=== PATIENT | male | born 1955 | race Caucasian/White ===

== ENCOUNTER 2021-10-01 10:20 | Outpatient (CLI) | payer BC ==
[2021-10-01 19:25] LABS: SARS-CoV-2 PCR by NAA Not Detected (NotDetected)
== END 2021-10-01 10:21 | disposition home or self-care (01) ==
LOC: CSHLAB 10:20
PROVIDERS: ATTEND Surgery
DX: Z20.822 Contact with and (suspected) exposure to COVID-19 (principal); C85.11 Unspecified B-cell lymphoma, lymph nodes of head, face, and neck
CPT/HCPCS: U0003; U0005

== ENCOUNTER 2021-10-04 05:28 | Day surgery (SDC) | payer BC ==
[2021-10-01 09:37] VITALS: BMI 29.7
[2021-10-04] MEDS ORDERED: Bupivacaine 0.25% HCL 30 ML VIAL ONE (06:32)
[2021-10-04] MEDS ORDERED: EPINEPHrine 1 MG/ML AMP ONE (06:33)
[2021-10-04] MEDS ORDERED: PROPOFOL 20 ML ONE (06:34)
[2021-10-04] MEDS ORDERED: Midazolam HCl 2 mg/2 ml Vial ONE (06:34)
[2021-10-04] MEDS ORDERED: Dexamethasone 4 mg/ml Vial ONE (06:34)
[2021-10-04] MEDS ORDERED: Fentanyl 100 MCG/2 ML VIAL ONE (06:34)
[2021-10-04] MEDS ORDERED: Ondansetron PF 4 MG/2 ML Vial ONE (06:34)
[2021-10-04] MEDS ORDERED: Lidocaine 2% PF 5 ML VIAL ONE (06:35)
[2021-10-04] MEDS ORDERED: Lidocaine 1% MPF 2 ML VIAL ONE (06:42)
[2021-10-04] MEDS ORDERED: ceFAZolin 2 GM/Dextrose 50 ML IVPB ONE (06:52)
[2021-10-04] MEDS ORDERED: Acetaminophen 325 MG TAB PO PRN (08:11)
[2021-10-04] MEDS ORDERED: HYDROcodone/Acetaminophen 5/325 mg Tablet PO PRN (08:11)
== END 2021-10-04 08:40 | disposition home or self-care (01) ==
LOC: CSHSDC 05:28
PROVIDERS: ATTEND Surgery
PROC: 05HM33Z Insertion of Infusion Device into Right Internal Jugular Vein, Percutaneous Approach (ICD-10-PCS; principal; 2021-10-04)
DX: C85.11 Unspecified B-cell lymphoma, lymph nodes of head, face, and neck (principal)
CPT/HCPCS: C1788; J0171; J0690; J1100; J1642; J2001; J2250; J2405; J2704; J3010; S0020